=== PATIENT | male | born 1970 | race African-American/Black ===

== ENCOUNTER → 2020-01-08 | Outpatient (CLI) | payer OTHER ==
[~2020-01-08] MED LIST: AMITRIPTYLINE H10 MG PO; INVEGA9 MG PO; LACTATED RINGER'S 1,000 ML ONE; LIDOCAINE HCL 2% LOCAL INJ 5 ML SDV VIAL INJ ONE; MIDAZOLAM HCL 2 MG/2 ML VIAL ONE; NORVIR100 M1 PO; PROPOFOL IV EMULSION 10 MG/ML 20 ML VIAL ONE; REYATAZ300 MG PO; TRUVADA 200 MG1 EACH PO
--- NOTE | 2020-01-08 17:37 | Diagnostic Imaging Report ---
History: Herniated disc. Right shoulder pain radiates to right arm, numbness and tingling right hand/fingers. Comparison studies: None Technique: Sagittal T1, T2 and IR, axial T2 and axial gradient echo Intravenous contrast: None Findings: Several pulse sequences are limited artifacts related to patient motion. In spite of limitations: Alignment: Mild reversal the usual cervical lordotic curvature. Cervicomedullary junction: No abnormalities. Patent foramen magnum. Soft tissues: No T2 hyperintense inflammatory changes. Spinal cord: Degenerative canal stenosis with mass effect on the spinal cord from C3 through T1. No gross cord signal changes. Moreover, evaluation of the cord is somewhat limited by motion artifacts. Vertebrae: No fractures, infection or neoplasm. Degenerative changes: C2-C3: Mildly degenerated disc. Patent canal and foramina. C3-C4: Mildly degenerated disc. Severe canal stenosis due to a disc osteophyte complex and thickened ligamentum flavum. Severe bilateral foraminal stenosis due to uncovertebral arthrosis. C4-C5: Mildly degenerated disc. Severe canal stenosis due to a disc osteophyte complex, small central disc protrusion mildly thickened ligamentum flavum. Moderate bilateral foraminal stenosis due to uncovertebral arthrosis. C5-C6: Mildly degenerated disc. Asymmetric left disc osteophyte complex and thickened ligamentum flavum results in severe canal stenosis. Severe left and mild right foraminal stenosis due to uncovertebral arthrosis. C6-C7: Mildly degenerated disc. Severe canal stenosis due to a disc osteophyte complex and thickened ligamentum flavum. Mild bilateral foraminal stenosis due to uncovertebral arthrosis. C7-T1: Mildly degenerated disc. Severe canal stenosis due to a disc osteophyte complex and thickened ligamentum flavum. And severe bilateral foraminal stenosis due to uncovertebral arthrosis. Incidental findings: Mildly prominent T2 hyperintense tissue in the posterior nasopharynx, possibly nonspecific reactive lymphoid hyperplasia. This could be correlated with direct visualization. Prominent bilateral retropharyngeal lymph nodes are also present. Findings may be reactive, special if in the context of recent upper respiratory infection or history of other viral infection inclusive of HIV. Other lymphoproliferative process such as lymphoma could also have this nonspecific. In the appropriate clinical setting. IMPRESSION: 1. Severe degenerative canal stenosis from C3 to T1 due to disc osteophyte complexes and small central disc protrusion at C4-C5. No gross associated cord signal changes. Moreover, evaluation of the spinal cord is somewhat limited by motion artifacts. 2. Degenerative foraminal stenosis; severe bilaterally at L3-L4, moderate bilaterally at C4-C5, severe left at C5-C6, moderate bilaterally at C6-C7 and severe bilaterally at C7-T1. 3. Nonspecific prominent posterior nasopharyngeal soft tissue (possibly lymphoid hyperplasia) as well as prominent bilateral retropharyngeal lymph nodes, as described. Recommend ENT consultation and follow-up neck CT to further evaluate. Signed by: Dr. Nikhil Melton M.D. on 01/08/2020 5:33 PM
== END ==
LOC: MRI 07:49
PROVIDERS: ATTEND Chiropractor
DX: M25.511 Pain in right shoulder (principal); R20.0 Anesthesia of skin; M50.31 Other cervical disc degeneration, high cervical region; M50.221 Other cervical disc displacement at C4-C5 level
CPT/HCPCS: 72141; 93005; J2001; J2250; J2704; J7121

== ENCOUNTER 2020-09-18 08:53 | Outpatient (RCR) | payer OTHER ==
[~2020-09-18 08:53] MED LIST changes: -LACTATED RINGER'S 1,000 ML ONE; -LIDOCAINE HCL 2% LOCAL INJ 5 ML SDV VIAL INJ ONE; -MIDAZOLAM HCL 2 MG/2 ML VIAL ONE; -PROPOFOL IV EMULSION 10 MG/ML 20 ML VIAL ONE
== END 2020-09-23 ==
LOC: PT 08:53
PROVIDERS: ATTEND Neurological Surgery
DX: M50.020 Cervical disc disorder with myelopathy, mid-cervical region, unspecified level (principal); M62.81 Muscle weakness (generalized)

== ENCOUNTER 2020-10-04 07:46 | Outpatient (RCR) | payer OTHER | END 2020-10-24 | LOC: PT 07:46 | PROVIDERS: ATTEND Neurological Surgery | DX: M50.020 Cervical disc disorder with myelopathy, mid-cervical region, unspecified level (principal); M62.81 Muscle weakness (generalized) ==

== ENCOUNTER → 2021-08-25 | Outpatient (CLI) | payer OTHER ==
[2021-08-15 11:28] LABS: BASOPHILS % 0.6 % (0.0-1.0); EOSINOPHILS # (AUTO) 0.1 (0.0-0.4); EOSINOPHILS % 1.4 % (0.0-6.0); HEMATOCRIT 46.3 % (38.2-49.6); HEMOGLOBIN 15.8 g/dL (14.0-18.0); LYMPHOCYTES # (AUTO) 2.7 (1.0-3.2); LYMPHOCYTES % 41.8 % (18.0-39.1); MEAN CORPUSCULAR HEMOGLOBIN 34.3 pg (28-32); MEAN CORPUSCULAR HGB CONC 34.1 g/dL (31-35); MEAN CORPUSCULAR VOLUME 100.4 fL (81-99); MONOCYTES # (AUTO) 0.6 (0.2-0.8); MONOCYTES % 9.8 % (4.4-11.3); NEUTROPHILS % 45.9 % (38.7-80.0); PLATELET COUNT 176 x10e3/uL (140-360); RED BLOOD COUNT 4.61 x10e6/uL (4.3-5.7); RED CELL DISTRIBUTION WIDTH 12.2 % (11.7-14.4)
[~2021-08-25] MED LIST changes: +FENTANYL CITRATE/PF 100MCG/2 ML INJ ONE; +LACTATED RINGER'S 1,000 ML ONE; +MIDAZOLAM HCL 2 MG/2 ML VIAL ONE
== END ==
LOC: MRI 08:00
PROVIDERS: ATTEND Chiropractor
DX: M54.50 Low back pain, unspecified (principal); M51.37 Other intervertebral disc degeneration, lumbosacral region; Z20.822 Contact with and (suspected) exposure to COVID-19
CPT/HCPCS: 36415; 71046; 72146; 72148; 85025; 93005; J7121; U0002 ×2; J2250; J3010